=== PATIENT | female | born 1995 | race Caucasian/White ===

== ENCOUNTER 2020-09-03 15:51 | Emergency (ER) | payer BC, SELFPAY ==
[2020-09-03] VITALS (13 sets, daily range): BP systolic 106–127; BP diastolic 56–73; PULSE 114; RESP 18; TEMP 36.6; O2SAT 96–100
--- NOTE | ~2020-09-03 | CT_ITS ---
EXAMINATION: CT abdomen pelvis w con DATE: 09/03/2020 17:43 INDICATION: Left adnexal pain. TECHNIQUE: Computed tomography (CT) of the abdomen and pelvis was performed with 100 mL Omnipaque-350 intravenous contrast. Automated exposure control and iterative reconstruction technique were employe d. The dose-length product was 627.93 mGy-cm. COMPARISON: Pelvic ultrasound dated 09/03/2020. FINDINGS: Minimal dependent atelectasis in the bilateral lower lobes. Heart size is normal. No pericardial or p leural effusion. 5 mm low density likely hepatic cyst or hemangioma which is too small to definitivel y identified. Gallbladder, spleen, pancreas, bilateral adrenal glands and kidneys are normal. Normal appendix. No abnormal bowel wall thickening or obstruction. Bladder is normal. IUD in expected positi on within the anteverted uterus. Bilateral ovarian cysts measuring 2.0 cm on the left and 1.9 cm with peripheral enhancement on the right, latter likely corpus luteum cyst. There is small amount of free fluid scattered throughout the abdomen and pelvis with lower density in the right upper quadrant kalpesh und the liver and with higher attenuation and sentinel clot sign in the cul-de-sac consistent with he moperitoneum likely originating in the pelvis with most likely etiology being rupture of one of the b ilateral ovarian cysts. The region of higher attenuation likely representing clot measures 8.3 x 5.8 x 3.6 cm. No abscess or free intraperineal gas. Small fat-containing umbilical hernia. No pathologica lly enlarged abdominal or pelvic lymphadenopathy. Mild lower thoracic and minimal lumbar spondylosis. IMPRESSION: 1. Small amount of hemoperitoneum with sentinel clot sign in the cul-de-sac suggesting a pelvic origi n likely related to rupture of one of the bilateral ovarian cysts. In the absence of a precontrast st udy is difficult to absolutely exclude an enhancing mass for what is suspected to be the clot and wou ld recommend 6-12 week follow-up ultrasound. 2. IUD in expected position within the anteverted uterus. Reviewed, dictated and finalized at location A. RVISOR METAL FURNITURE FABRICATION IMPRESSION: 1. Small amount of hemoperitoneum with sentinel clot sign in the cul-de-sac sug gesting a pelvic origin likely related to rupture of one of the bilateral ovari an cysts. In the absence of a precontrast study is difficult to absolutely excl ude an enhancing mass for what is suspected to be the clot and would recommend 6-12 week follow-up ultrasound. 2. IUD in expected position within the anteverted uterus.
--- NOTE | ~2020-09-03 | US_ITS ---
EXAMINATION: US pelvic complete w TV DATE: 09/03/2020 16:55 INDICATION: Left adnexal pain Comparison:No prior studies for comparison. TECHNIQUE: Multiple transabdominal and endovaginal sonographic images of the pelvis performed. FINDINGS: The uterus measures 8.4 x 3.5 cm. IUD present in the fundus. Endometrium is not well deline ated. Right ovary is not visualized. Left ovary measures 4 x 1.8 x 2.4 cm. There is a large complex h eterogeneous area of soft tissue in the left adnexa measuring 7.7 x 5.5 x 7.7 cm, possibly hemorrhage , infection or mass. IMPRESSION: 1. Large complex heterogeneous area of soft tissue in the left adnexa measuring up to 7.7 cm which ma y represent hemorrhage, infection or mass. Correlation with contrast-enhanced CT is recommended for f urther assessment. Reviewed, dictated and finalized at location B. ATRIC NEPHROLOGIST IMPRESSION: 1. Large complex heterogeneous area of soft tissue in the left adnexa measuring up to 7.7 cm which may represent hemorrhage, infection or mass. Correlation wi contrast-enhanced CT is recommended for further assessment.
[2020-09-03 16:22] LABS: Add Urine Microscopic? YES; Appearance Urine Clear (Clear); Bacteria Urine Trace /hpf; Bilirubin Urine Negative (Negative); Blood Urine Negative (Negative); Color Urine Yellow (Yellow); Glucose Urine UA Negative (Negative); Ketones Urine Negative (Negative); Leukocyte Esterase Ur Negative LEU/UL (Negative); Mucus Urine Few /lpf; Nitrate Urine Negative (Negative); Protein Urine 2+ mg/dL (Negative); Specific Grav Ur 1.027 (1.001-1.035); Squamous Epithelial Cell Urine Occasional /hpf (Few); Urobilinogen Urine Negative mg/dL (<2.0); WBC Urine 0-3 /hpf
[2020-09-03 16:29] LABS: Basophils Percent Auto 0.2 % (0.2-1.2); Eosinophils Absolute Auto 0.2 K/mm3 (0-0.3); Eosinophils Percent Auto 1.2 % (0-4.4); Hematocrit 40.1 % (37.0-47.0); Hemoglobin 13.5 g/dL (12.0-15.0); Immature Granulocyte Absolute 0.04 K/mm3 (0.00-0.031); Immature Granulocyte Percent A 0.3 % (0-0.5); Lymphocytes Absolute Auto 1.86 K/mm3 (0.9-3.2); Lymphocytes Percent Auto 13.5 % (18.3-44.2); Mean Corpuscular HGB Conc 33.7 g/dl (32-36); Mean Corpuscular Volume 86.1 fl (80-100); Mean Platelet Volume 9.7 fl (7.4-10.4); Monocytes Absolute Auto 0.8 K/mm3 (0.1-0.6); Monocytes Percent Auto 5.7 % (2.6-8.5); Neutrophils Absolute Auto 10.9 K/mm3 (1.3-6.7); Neutrophils Percent Auto 79.1 % (45.5-73.1); Platelet Count Result 229 k/mm3 (150-375); Red Blood Count 4.66 M/mm3 (4.2-5.4); Red Cell Distribution Width 13.2 % (11.5-14.5); White Blood Count 13.8 K/mm3 (4.5-10.0)
[2020-09-03 16:41] LABS: Alanine Aminotransferase 17 U/L (4-35); Albumin Level 4.2 g/dL (3.5-5.1); Alkaline Phosphatase 67 U/L (38-126); Anion Gap 9 mmol/L (8-16); Aspartate Amino Transferase 19 U/L (14-36); Bilirubin,Total 0.2 mg/dL (0.2-1.3); Blood Urea Nitrogen 15 mg/dL (7-17); Calcium 9.2 mg/dL (8.4-10.2); Carbon Dioxide 26 mmol/L (22-30); Chloride 106 mmol/L (98-107); Estimated CRCL calculation 93 ml/min; Estimated Glomerular Filt Rate > 60; Glucose 106 mg/dL (65-105); Lipase 135 U/L (23-300); Potassium 3.7 mmol/L (3.4-5.0); Sodium 141 mmol/L (137-145)
[2020-09-03] MEDS: FAMOTIDINE 20 MG/2 ML VIAL IV PUSH (16:52)
[2020-09-03] MEDS: SODIUM CHLORIDE 0.9% IV 1,000 ML 999 ML IV CONT (16:52)
[2020-09-03] MEDS: ONDANSETRON INJ 4 MG/2 ML VIAL IV PUSH (16:52)
[2020-09-03] MEDS: MORPHINE SULFATE (*CRX) 4 MG/ML INJ IV PUSH (16:53)
[2020-09-03] MEDS: IBUPROFEN IV 800 MG/200 ML 800 MG/200 ML BAG 400 MG IVPB (18:47)
--- NOTE | 2020-09-03 19:20 | ED.ABDPAIN ---
HPI - Abdominal Pain General Chief Complaint: Abdominal Pain Stated Complaint: Cyst On Ovary Time Seen by Provider: 09/03/20 16:12 Source: patient Mode of arrival: ambulatory Limitations: no limitations History of Present Illness HPI narrative: Patient is a 25-year-old female who presents with abdominal pain noting that she had some light cramping pain 2 days ago in the left adnexa notes history of ovarian cysts and thought that this pain was consistent with prior ovarian cysts patient notes that today the pain became much more severe and cramping in the left adnexa with pain radiating to the abdomen patient denies pain of this nature before with her cysts on arrival of the pain has began to taper down slightly patient denies fever chills nausea vomiting vaginal bleeding discharge urinary symptoms or bowel habit changes Related Data Allergies Allergy/AdvReac Type Severity Reaction Status Date / Time No Known Allergies Allergy Unverified 04/30/19 08:14 Review of Systems Review of Systems: All systems reviewed & are unremarkable except as noted in HPI and below Exam Narrative: Exam Narrative: GENERAL: Well-appearing, well-nourished, and in no acute distress. HEAD: Normocephalic, atraumatic. EYES: PERRLA and EOMI. ENT: Nares clear, no rhinorrhea or epistaxis. Mucous membranes moist. CHEST: Clear to auscultation. No respiratory distress. No wheezes rales or rhonchi HEART: Regular rate and rhythm. No murmur heard. Normal peripheral pulses. ABDOMEN: Soft, tenderness in the left adnexa with guarding patient with mild tenderness in the remainder of the abdomen EXTREMITIES: Normal range of motion. No edema. SKIN: Warm, dry, no rash. NEURO: No focal deficits. Alert and oriented x3. PSYCH: Normal mood and affect. Course Course Emergency Course: Patient in the room with improved condition with medications aware of discussion and recommendations of the home care assistant on-call who she will follow with in clinic patient hemodynamically stable ABCs intact feeling much better at this time well tolerated pain afebrile nontoxic-appearing without emesis provided with reasons to return Consultations Consultation #1: Discussed case with Dr. Gibson who notes that the patient can follow in clinic if her pain is well tolerated and she feels comfortable following in clinic Date: 09/03/20 Time: 20:11 Vital Signs Vital signs: Vital Signs Temperature 97.9 F 09/03/20 16:02 Pulse Rate 114 H 09/03/20 16:02 Respiratory Rate 18 09/03/20 16:02 Blood Pressure 127/73 09/03/20 16:02 Pulse Oximetry 100 09/03/20 16:02 Temperature 97.9 F 09/03/20 16:02 Pulse Rate 114 H 09/03/20 16:02 Respiratory Rate 18 09/03/20 16:02 Blood Pressure 116/72 09/03/20 18:00 Pulse Oximetry 98 09/03/20 18:01 MDM - Abdominal Pain MDM Narrative Medical decision making narrative: Patient evaluated and found to have likely bleeding from an ovarian cyst patient will follow with a home care assistant with close follow-up for reevaluation patient's pain well tolerated and controlled felt that her leukocytosis likely secondary to pain and inflammation patient with fluids anti-inflammatory and pain medication feeling much better and believes that she is comfortable to go home given reasons to return patient is afebrile nontoxic-appearing no distress Lab Data Result diagrams: 09/03/20 16:22 09/03/20 16:22 Labs: Lab Results 09/03/20 09/03/20 09/03/20 Range/Units 16:09 16:22 16:22 WBC 13.8 H (4.5-10.0) K/mm3 RBC 4.66 (4.2-5.4) M/mm3 Hgb 13.5 (12.0-15.0) g/dL Hct 40.1 (37.0-47.0) % MCV 86.1 (80-100) fl MCH 29.0 (26-34) pg MCHC 33.7 (32-36) g/dl RDW 13.2 (11.5-14.5) % Plt Count 229 (150-375) k/mm3 MPV 9.7 (7.4-10.4) fl Immature Gran % (Auto) 0.3 (0-0.5) % Neut % (Auto) 79.1 H (45.5-73.1) % Lymph % (Auto) 13.5 L (18.3-44.2) % [place] % (Auto) 5.7 (2.6-8.5) % Eos %
== END 2020-09-03 20:29 | disposition home or self-care (01) ==
PROVIDERS: Emergency Provider Emergency Medicine; PCP Nurse Practitioner Adult Health
DX: N83.202 Unspecified ovarian cyst, left side (principal); R10.9 Unspecified abdominal pain
CPT/HCPCS: 36415; 74177; 76830; 76856; 80053; 81001; 81025; 83690; 85025; 96365; 96367; 96375; 99284; J0131; J1741; J2270; J2405; J7030; Q9967

== ENCOUNTER 2020-09-24 07:32 | Outpatient (CLI) | payer BC, SELFPAY ==
--- NOTE | ~2020-09-24 | US_ITS ---
EXAMINATION: US pelvic complete w TV DATE: 09/24/2020 09:06 INDICATION: Bilateral ovarian cysts TECHNIQUE: Multiple transabdominal and endovaginal sonographic images of the pelvis were obtained. COMPARISON: 09/03/2020 FINDINGS: The uterus measures 11 x 4.8 x 3.7 cm. The endometrial complex measures 5 mm. The right ova ry measures 3 x 1.9 x 2.2 cm. The left ovary measures 2.9 x 2.1 x 1.8 cm and contains a 1.1 x 1 cm hy poechoic lesion. There is normal vascular flow in the ovaries. There is no free fluid in the pelvis. The previously described hemoperitoneum has resolved. IMPRESSION: 1. Interval resolution of the previously described hemoperitoneum. 2. Hypoechoic lesion of the left ovary which could reflect resolving hemorrhagic cyst. Continued foll ow-up ultrasound in 6-12 weeks is recommended. Reviewed, dictated and finalized at location A. ING MACHINE OPERATOR ELECTRO GAS IMPRESSION: 1. Interval resolution of the previously described hemoperitoneum. 2. Hypoechoic lesion of the left ovary which could reflect resolving hemorrhagi c cyst. Continued follow-up ultrasound in 6-12 weeks is recommended.
== END 2020-09-24 07:33 | disposition home or self-care (01) ==
LOC: ANHIMG 07:39
PROVIDERS: PCP Nurse Practitioner Adult Health; Visit Provider Obstetrics & Gynecology
DX: N83.209 Unspecified ovarian cyst, unspecified side (principal)
CPT/HCPCS: 76830; 76856

== ENCOUNTER 2021-08-11 01:46 | Day surgery (SDC) | payer BC, SELFPAY ==
[2021-08-10 10:56] VITALS: BMI 31.4
--- NOTE | 2021-08-11 09:41 | P.PNAN_ITS ---
Anes - Initial Pre Proc Eval Procedure: Operation Date: 08/11/21 11:15 Proposed Procedures p Esophagogastroduodenoscopy - Naseem Mejia MD Date/Time: 08/11/21 09:41 Surgeon: Naseem Mejia MD Pre Op Diagnosis: dysphagia Patient Data Age: 26 Gender: F Height: 1.6 m Weight: 80.5 kg Allergies Allergy/AdvReac Type Severity Reaction Status Date / Time No Known Allergies Allergy Verified 08/11/21 09:59 Home Medications Medication Instructions Recorded Confirmed Type famotidine [Pepcid] 20 mg PO BID 08/10/21 08/11/21 History norelgestromin-ethin.estradiol 1 patch TRANSDERMAL WEEKLY 08/10/21 08/11/21 History [Zafemy] sucralfate 1 g PO QID 08/10/21 08/11/21 History Patient hx anesthesia problems: none Family hx anesthesia problems: none Results Review: All pre-operative results and documents have been reviewed as part of the pre-operative evaluation. [facility] Past Medical History Medical History (Updated 08/11/21 @ 09:42 by Jonah Walsh MD) Acid reflux Anxiety Back pain Chronic GERD Depression Dysphagia Obesity Surgical History Surgical History (Updated 01/23/21 @ 09:12 by Germania Batista MA) History of lumpectomy of right breast [place] teeth removed Family History Family History Sibling Diabetes mellitus Social History Social History Smoking status: Never smoker Alcohol intake: never Substance use: never Living arrangements: with family Spiritual care concerns: No Anes - Eval Final PreProcedure Day of Procedure 08/11/21 09:41 Patient weight: obese Heart: regular rate and rhythm Lungs: clear to auscultation and normal air movement Airway: Mallampati scale class II Neurological: alert and oriented Last oral intake: >/= 8 hours ASA classification: II Emergent: no Anesthetic plan: proceed Anesthesia type and monitoring: general GIVS Results Review: All pre-operative results and documents have been reviewed as part of the pre-operative evaluation. Informed Consent: The patient's anesthetic plan and its attendant risks and benefits were discussed with the patient/family/POA. Questions were solicited and answers provided to the satisfaction of the patient/family/POA.
[2021-08-11 10:00] VITALS: BP 117/65; PULSE 75; RESP 18; TEMP 36.4; O2SAT 99
[2021-08-11] MEDS: LACTATED RINGERS 1,000 ML 150 ML IV CONT (10:14)
--- NOTE | 2021-08-11 11:41 | PM.HPGS ---
History of Present Illness History of Present Illness Consent: Risks, benefits, and alternatives have been discussed and questions answered. Patient agrees to proceed with procedure. Chief complaint: dysphagia Narrative: Daxa Addison is a 26 year old female diagnosed with EoE 2 years ago, also gerd. Currently not using ppi but pepcid and recently carafate after ER visit (also dysphagia) Review of Systems Constitutional: Constitutional: Denies headache(s) and Denies weakness Eyes: Eyes: Denies blurry vision ENT: Reports Normal hearing present, Denies headache(s) and Denies neck pain Cardiovascular: Cardiovascular: Denies chest pain and Denies dyspnea Respiratory: Respiratory: Denies dyspnea Gastrointestinal: Gastrointestinal: Reports no additional gastrointestinal complaints Genitourinary: Genitourinary: Denies dysuria Musculoskeletal: Musculoskeletal: Denies neck pain Integumentary/Breasts: Skin/Breast: Denies dry skin Neurologic: Reports Normal hearing present, Denies headache(s) and Denies weakness Psychiatric: Psychiatric: Denies anxiety Endocrine: Endocrine: Denies change in body appearance Hematologic/Lymphatic: Hematologic/Lymphatic: Denies easy bleeding Allergic/Immunologic: Allergic/Immunologic: Denies urticaria PMFSH Past Medical History Medical History (Updated 08/11/21 @ 09:42 by Jonah Walsh MD) Acid reflux Anxiety Back pain Chronic GERD Depression Dysphagia Obesity Surgical History Surgical History (Updated 01/23/21 @ 09:12 by Germania Batista MA) History of lumpectomy of right breast [place] teeth removed Family History Family History Sibling Diabetes mellitus Social History Social History Smoking status: Never smoker Alcohol intake: never Substance use: never Living arrangements: with family Spiritual care concerns: No Meds Home Medications and Allergies Home Medications Medication Instructions Recorded Confirmed Type famotidine [Pepcid] 20 mg PO BID 08/10/21 08/11/21 History norelgestromin-ethin.estradiol 1 patch TRANSDERMAL WEEKLY 08/10/21 08/11/21 History [Zafemy] sucralfate 1 g PO QID 08/10/21 08/11/21 History Allergies Allergy/AdvReac Type Severity Reaction Status Date / Time No Known Allergies Allergy Verified 08/11/21 09:59 Vital Signs Vital Signs - 24 hr 08/11/21 10:00 Temperature 97.5 F L Pulse Rate 75 Respiratory Rate 18 Blood Pressure 117/65 Pulse Oximetry 99 Exam Const: General: comfortable and no acute distress HENMT: General nose exam: Normal nares present Eyes: General: appearance normal, both eyes and all related structures Neck: Neck: no JVD Resp: Auscultation: clear to auscultation bilaterally Cardio: Rate: regular rate Rhythm: regular rhythm GI: Inspection: non-distended GI Palp: Yes Soft to palpation Skin: General skin exam: normal color Neuro: General: gait normal Speech: normal speech Extrem: General: normal to inspection Psych: Mental Status: mental status grossly normal Assessment and Plan Assessment and plan (1) Dysphagia: Code(s): R13.10 - Dysphagia, unspecified Status: Acute Assessment and Plan: egd with bx, may need ppi again (2) Chronic GERD: Code(s): K21.9 - Gastro-esophageal reflux disease without esophagitis Status: Acute
[2021-08-11 11:53] VITALS: BP 82/45; PULSE 69; RESP 16; O2SAT 100
[2021-08-11 12:03] VITALS: BP 95/56; PULSE 63; RESP 18; O2SAT 100
[2021-08-11 12:13] VITALS: BP 103/64; PULSE 60; RESP 18; O2SAT 100
== END 2021-08-11 12:20 | disposition home or self-care (01) ==
PROVIDERS: PCP Nurse Practitioner Adult Health; Visit Provider Internal Medicine Gastroenterology
PROC: 0DJ08ZZ Inspection of Upper Intestinal Tract, Via Natural or Artificial Opening Endoscopic (ICD-10-PCS; CPT 43235; principal; 2021-08-11 11:15)
DX: R13.19 Other dysphagia (principal); K44.9 Diaphragmatic hernia without obstruction or gangrene; K21.00 Gastro-esophageal reflux disease with esophagitis, without bleeding; F41.9 Anxiety disorder, unspecified; F41.8 Other specified anxiety disorders; E66.9 Obesity, unspecified; Z68.30 Body mass index [BMI] 30.0-30.9, adult
CPT/HCPCS: 43239; 88305; J2704; J7120